=== PATIENT | female | born 1950 ===

== ENCOUNTER 2021-01-01 18:55 | Inpatient (IN) | payer MEDICARE, MEDICAID ==
[~2021-01-01] VITALS: Ht 162.6 cm; Wt 71.2 kg
[2021-01-01] MEDS ORDERED: SODIUM CHLORIDE 0.9% 100 ML ONE (19:19)
[2021-01-01] MEDS ORDERED: IOHEXOL 350 MG/ML 100 ML VIAL ONE (19:19)
[2021-01-01 19:33] LABS: BASOPHILS % (AUTO) 0.4 % (0.0-2.0); EOSINOPHILS % (AUTO) 6.2 % (1.0-6.0); HEMATOCRIT 30.3 % (36-46); HEMOGLOBIN 9.9 g/dL (12.0-16.0); LYMPHOCYTES # (AUTO) 1.2 K/uL (1.0-4.8); LYMPHOCYTES % (AUTO) 17.1 % (22.0-44.0); MEAN CORPUSCULAR HEMOGLOBIN 29.9 pg (26.0-34.0); MEAN CORPUSCULAR HGB CONC 32.5 G/dL (31.0-37.0); MEAN CORPUSCULAR VOLUME 92 fL (80-100); MONOCYTES # (AUTO) 0.5 K/uL (0.1-1.0); MONOCYTES % (AUTO) 7.2 % (2.0-9.0); NEUTROPHILS # (AUTO) 4.8 K/uL (1.8-7.7); NEUTROPHILS % (AUTO) 69.1 % (40.0-70.0); PLATELET COUNT (AUTO) 205 K/uL (150-450); RED BLOOD CELL COUNT(AUTO) 3.29 MIL/uL (4.00-5.20); RED CELL DISTRIBUTION WIDTH 20.5 % (11.5-14.5)
[2021-01-01 19:52] LABS: PROTHROMBIN TIME 10.2 SEC (9.4-11.6)
[2021-01-01 19:53] LABS: ANION GAP 14 mmol/L (8-16); CALCIUM, TOTAL 8.8 mg/dL (8.8-10.5); CARBON DIOXIDE 21 mmol/L (22-29); CHLORIDE 110 mmol/L (98-107); CREATININE 4.32 mg/dL (0.60-1.30); GLOMERULAR FILTR. RATE CALC 10 mL/min (>60); GLUCOSE,RANDOM 126 mg/dL (70-110); POTASSIUM 4.7 mmol/L (3.5-5.1); SODIUM SERUM 145 mmol/L (136-145); UREA NITROGEN, BLOOD 53 mg/dL (7-18)
[2021-01-01 19:57] LABS: SALICYLATE 2.1 mg/dL (2.8-20.0)
[2021-01-01 19:59] LABS: ACETAMINOPHEN < 2 mcg/mL (10-30); ALANINE AMINOTRANSFERASE 15 U/L (12-78); ALBUMIN 3.6 g/dL (3.4-5.0); ALKALINE PHOSPHATASE 81 U/L (46-116); ASPARTATE AMINOTRANSFERASE 22 U/L (15-37); BILIRUBIN,TOTAL 0.2 mg/dL (0.1-1.0); TOTAL PROTEIN, SERUM 8.1 g/dL (6.4-8.2)
[2021-01-01] MEDS ORDERED: ASPIRIN 300 MG RECTAL SUPPOSITORY PR ONE (20:15)
[2021-01-01 20:59] LABS: CREATINE KINASE, TOTAL ONLY 87 U/L (26-192)
[2021-01-01 21:24] LABS: APPEARANCE,URINE CLEAR (CLEAR); BILIRUBIN,URINE NEGATIVE (NEGATIVE); GLUCOSE, URINE (UA) NEGATIVE (NEGATIVE); KETONES,URINE NEGATIVE (NEGATIVE); LEUKOCYTE ESTERASE ,URINE LARGE (NEGATIVE); NITRATE,URINE POSITIVE (NEGATIVE); OCCULT BLOOD,URINE SMALL (NEGATIVE); PH,URINE 5.5 (5.0-8.0); PROTEIN,URINE SEE CONFIRM (NEGATIVE); UROBILINOGEN,URINE 0.2 mg/dL (<=1.0)
[2021-01-01 21:25] LABS: AMPHET/METH SCREEN,URINE NEGATIVE (NEGATIVE); BARBITURATE SCREEN, URINE NEGATIVE (NEGATIVE); BENZODIAZEPINES SCREEN,URINE NEGATIVE (NEGATIVE); CANNABINOID SCREEN,URINE POSITIVE (NEGATIVE); COCAINE SCREEN,URINE NEGATIVE (NEGATIVE); METHADONE SCREEN, URINE NEGATIVE (NEGATIVE); OPIATE SCREEN,URINE POSITIVE (NEGATIVE)
[2021-01-01 21:26] LABS: PHENCYCLIDINE SCREEN,URINE NEGATIVE (NEGATIVE)
[2021-01-01 21:30] LABS: SULFOSALICYLIC ACID,URINE 2+ (Negative)
[2021-01-01] MEDS ORDERED: CefTRIAXone 1 GM/DEXTROSE 50 ML IV ONE (21:30)
[2021-01-01 21:31] LABS: BACTERIA,URINE Moderate /HPF (None Seen); WBC,URINE Full Field /HPF (0-5)
[2021-01-01] MEDS ORDERED: ONDANSETRON HCL 4 MG/2 ML VIAL IVP PRN ×3 (21:45)
[2021-01-01] MEDS ORDERED: 0.9% SODIUM CHLORIDE 10 ML SYRINGE IVP PRN (21:45)
[2021-01-01] MEDS ORDERED: ACETAMINOPHEN 325 MG TABLET PO PRN ×2 (21:45)
[2021-01-01] MEDS: PIPERACILLIN SODIUM/TAZOBACTAM 2.25 GM in DEXTROSE 5%-WATER 50 ML IV SCH (22:20)
[2021-01-01 22:49] LABS: HEMOGLOBIN A1C 5.6 % (3.8-5.6)
[2021-01-01 23:15] LABS: COVID AG,FIA SOURCE NASOPHARYNGEAL
[2021-01-01] MEDS ORDERED: MORPHINE SULFATE 2 MG/ML SYRINGE IVP PRN (23:30)
[2021-01-01] MEDS ORDERED: METF-960 PO (23:32)
[2021-01-01] MEDS ORDERED: ACET-2247 PO (23:33)
[2021-01-01] MEDS: HEPARIN SODIUM,PORCINE 5,000 UNITS/ML VIAL SQ SCH (23:46)
[2021-01-02] VITALS (8 sets, daily range): BP systolic 129–163; BP diastolic 69–102
[2021-01-02] MEDS ORDERED: SODIUM CHLORIDE 0.9% 250 ML IV ONE (06:01)
[2021-01-02] MEDS: PIPERACILLIN SODIUM/TAZOBACTAM 2.25 GM in DEXTROSE 5%-WATER 50 ML IV SCH ×3 (06:14→21:30)
[2021-01-02 07:51] LABS: CREATININE,URINE RANDOM 87.8 mg/dL (30.0-125.0)
[2021-01-02] MEDS: HEPARIN SODIUM,PORCINE 5,000 UNITS/ML VIAL SQ SCH ×2 (08:39→16:11)
[2021-01-03] VITALS (8 sets, daily range): BP systolic 154–194; BP diastolic 76–103
[2021-01-03] MEDS: LABETALOL HCL 100 MG TABLET PO SCH ×3 (00:16→20:38)
[2021-01-03] MEDS: HEPARIN SODIUM,PORCINE 5,000 UNITS/ML VIAL SQ SCH ×4 (00:16→23:12)
[2021-01-03] MEDS: PIPERACILLIN SODIUM/TAZOBACTAM 2.25 GM in DEXTROSE 5%-WATER 50 ML IV SCH ×3 (05:51→21:13)
[2021-01-03] MEDS: HydrALAZINE HCL 10 MG TABLET PO PRN ×2 (14:52→23:12)
[2021-01-03] MEDS: AmLODIPine BESYLATE 5 MG TABLET PO SCH (17:33)
[2021-01-04 03:51] VITALS: BP 151/89
[2021-01-04] MEDS ORDERED: SODIUM CHLORIDE 0.9% 250 ML IV ONE (05:47)
[2021-01-04] MEDS: PIPERACILLIN SODIUM/TAZOBACTAM 2.25 GM in DEXTROSE 5%-WATER 50 ML IV SCH ×2 (05:55→13:23)
[2021-01-04 07:41] VITALS: BP 145/63
[2021-01-04] MEDS: HEPARIN SODIUM,PORCINE 5,000 UNITS/ML VIAL SQ SCH ×2 (08:03→15:31)
[2021-01-04] MEDS: LABETALOL HCL 100 MG TABLET PO SCH (08:03)
[2021-01-04] MEDS: AmLODIPine BESYLATE 5 MG TABLET PO SCH (08:03)
[2021-01-04 11:49] VITALS: BP 174/84
[2021-01-04] MEDS: HydrALAZINE HCL 10 MG TABLET PO PRN (12:00)
[2021-01-04] MEDS ORDERED: AmLODIPine BESYLATE 5 MG TABLET PO ONE (12:15)
[2021-01-04] MEDS ORDERED: AMLO-258 PO (12:24)
[2021-01-04] MEDS ORDERED: LABE100T51 PO (12:25)
[2021-01-04] MEDS ORDERED: CEPH500C3 PO (12:25)
[2021-01-04] MEDS ORDERED: ACETAMINOPHEN 325 MG TABLET PO PRN (12:45)
[2021-01-04 14:55] VITALS: BP 171/95
[2021-01-04] MEDS ORDERED: HydrALAZINE HCL 25 MG TABLET PO SCH (15:15)
[2021-01-04] MEDS ORDERED: HYDR25TA84 PO (15:15)
[2021-01-04 16:30] VITALS: BP 145/91
[2021-01-05] MEDS ORDERED: AmLODIPine BESYLATE 10 MG TABLET PO SCH (09:00)
== END 2021-01-04 17:20 | disposition home health service (06) | DRG 71 ==
LOC: EMS 19:01 → 5S 01-02 → EDBD 01-02 → 5S 01-04 00:20
PROVIDERS: ADMIT Internal Medicine; ATTEND Internal Medicine
DX: G93.41 Metabolic encephalopathy (principal); N39.0 Urinary tract infection, site not specified; N18.30 Chronic kidney disease, stage 3 unspecified; I12.9 Hypertensive chronic kidney disease with stage 1 through stage 4 chronic kidney disease, or unspecified chronic kidney disease; T50.915A Adverse effect of multiple unspecified drugs, medicaments and biological substances, initial encounter; E78.5 Hyperlipidemia, unspecified; D63.8 Anemia in other chronic diseases classified elsewhere; F99 Mental disorder, not otherwise specified; Z20.822 Contact with and (suspected) exposure to COVID-19; E78.00 Pure hypercholesterolemia, unspecified; Z90.710 Acquired absence of both cervix and uterus; Z79.899 Other long term (current) drug therapy
CPT/HCPCS: 70496; 71045; 76770; 80053; 81001; 81002; 82550; 82570; 83036; 83605; 84156; 84300; 84484; 85025; 85610; 85730; 86850; 86900; 86901; 87040; 87077; 87086; 87186; 92610; 93005; 93306; 99291; G0378; G0480; G0481; J0696; J1644; J2270; J2543; J7050; J7060; Q9967; 36415-L1; 36415-TC; 70450; 70450-TC